=== PATIENT | male | born 2005 | race Caucasian/White ===

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

== ENCOUNTER 2024-04-14 08:46 | Inpatient (IN) | payer MEDICAID ==
[2024-04-14] MEDS ORDERED: Naloxone 0.4 MG/ML SDV IVPUSH PRN (09:17)
[2024-04-14] MEDS: Ondansetron 4 MG/2 ML SDV IVPUSH ONE (09:28)
[2024-04-14] MEDS: Sodium Chloride 0.9% 500 ML IV ONE (09:28)
[2024-04-14] MEDS: HYDROmorphone 0.5 MG/0.5 ML Syringe IVPUSH PRN (09:28)
[2024-04-14 09:31] LABS: BASOPHILS ABSOLUTE AUTO 0.03 K/uL (0.00-0.10); BASOPHILS PERCENT AUTO 0.2 % (0.1-1.3); EOSINOPHILS ABSOLUTE AUTO 0.05 K/uL (0.00-0.40); EOSINOPHILS PERCENT AUTO 0.4 % (0.0-5.4); HEMATOCRIT 49.9 % (38.4-49.7); HEMOGLOBIN 17.8 g/dL (12.9-16.9); IMMATURE GRAN ABSOLUTE AUTO 0.04 K/uL (0.00-0.23); IMMATURE GRAN PERCENT AUTO 0.3 % (0.0-0.7); LYMPHOCYTES ABSOLUTE AUTO 1.05 K/uL (0.8-3.3); LYMPHOCYTES PERCENT AUTO 7.6 % (11.4-47.7); MEAN CORPUSCULAR HEMOGLOBIN 30.6 pg (31.6-35.5); MEAN CORPUSCULAR HGB CONC 35.7 g/dL (31.6-35.5); MEAN CORPUSCULAR VOLUME 85.9 fL (81.4-99.0); MONOCYTES ABSOLUTE AUTO 0.57 K/uL (0.20-0.90); MONOCYTES PERCENT AUTO 4.1 % (3.3-12.6); NEUTROPHILS ABSOLUTE AUTO 12.15 K/uL (1.0-7.6); NEUTROPHILS PERCENT AUTO 87.4 % (40.0-78.1); PLATELET COUNT,PLT 349 K/uL (130-375); RED BLOOD CELL COUNT 5.81 M/uL (4.14-5.76); WHITE BLOOD CELL COUNT,WBC 13.9 K/uL (3.2-11.0)
[2024-04-14] MEDS: Sodium Chloride 0.9% 80 ML IV ONE (09:36)
[2024-04-14] MEDS: Sodium Chloride 0.9% 10 ML Syringe FLUSH PRN (09:36)
[2024-04-14] MEDS: Iopamidol 612 MG/ML 100 ML Bottle IV PRN (09:36)
[2024-04-14 09:56] LABS: A/G RATIO 1.3 (1.2-2.2); ALANINE AMINOTRANSFERASE,ALT 37 U/L (12-78); ALBUMIN 4.9 g/dL (3.4-5.0); ALKALINE PHOSPHATASE 75 U/L (46-116); ASPARTATE AMNIOTRANSFERASE,AST 29 U/L (15-37); BILIRUBIN TOTAL 0.8 mg/dL (0.2-1.0); BLOOD UREA NITROGEN,BUN 14 mg/dL (7-18); CALCIUM 10.3 mg/dL (8.5-10.1); CARBON DIOXIDE,CO2 26 mmol/L (21-32); CHLORIDE,CL 101 mmol/L (100-108); EST CRCL DRUG DOSING (CG) 129.33 mL/min; ESTIMATED GFR 111 mL/min (>60); GLUCOSE RANDOM 113 mg/dL (74-106); POTASSIUM,K 4.3 mmol/L (3.6-5.2); PROTEIN TOTAL,TP 8.7 g/dL (6.4-8.2); SODIUM,NA 139 mmol/L (140-148)
[2024-04-14 10:10] LABS: ANION GAP 16.3 mmol/L (5.0-14.0)
[2024-04-14 10:28] LABS: CORONAVIRUS COVID-19 NAA NEGATIVE (NEGATIVE); INFLUENZA A NAA NEGATIVE (NEGATIVE); INFLUENZA B NAA NEGATIVE (NEGATIVE); RESPIRATORY SYNCYTIAL VIR NAA NEGATIVE (NEGATIVE)
[2024-04-14] MEDS ORDERED: Ondansetron 4 MG/2 ML SDV IV PRN (10:59)
[2024-04-14] MEDS ORDERED: Acetaminophen 325 MG Tab PO PRN (10:59)
[2024-04-14] MEDS: Lactated Ringers 1,000 ML IV SCH (12:26)
[2024-04-14] MEDS: Benzocaine/Cetylpyridinium/Menthol Lozenge MUCMEM PRN (19:26)
[2024-04-15 05:16] LABS: BASOPHILS ABSOLUTE AUTO 0.04 K/uL (0.00-0.10); BASOPHILS PERCENT AUTO 0.4 % (0.1-1.3); EOSINOPHILS ABSOLUTE AUTO 0.34 K/uL (0.00-0.40); EOSINOPHILS PERCENT AUTO 3.2 % (0.0-5.4); HEMATOCRIT 42.8 % (38.4-49.7); IMMATURE GRAN ABSOLUTE AUTO 0.03 K/uL (0.00-0.23); IMMATURE GRAN PERCENT AUTO 0.3 % (0.0-0.7); LYMPHOCYTES ABSOLUTE AUTO 2.51 K/uL (0.8-3.3); MEAN CORPUSCULAR HEMOGLOBIN 30.5 pg (31.6-35.5); MEAN CORPUSCULAR VOLUME 87.2 fL (81.4-99.0); MONOCYTES ABSOLUTE AUTO 0.99 K/uL (0.20-0.90); MONOCYTES PERCENT AUTO 9.5 % (3.3-12.6); NEUTROPHILS ABSOLUTE AUTO 6.56 K/uL (1.0-7.6); NEUTROPHILS PERCENT AUTO 62.6 % (40.0-78.1); PLATELET COUNT,PLT 316 K/uL (130-375); RED BLOOD CELL COUNT 4.91 M/uL (4.14-5.76); WHITE BLOOD CELL COUNT,WBC 10.5 K/uL (3.2-11.0)
[2024-04-15 05:37] LABS: ANION GAP 7.3 mmol/L (5.0-14.0); EST CRCL DRUG DOSING (CG) 129.33 mL/min; POTASSIUM,K 3.7 mmol/L (3.6-5.2)
[2024-04-15] MEDS: Diatrizoate Meglumine/Diatrizoate Sodium 37% 30 ML Bottle NGTUBE ONE (05:58)
== END 2024-04-15 15:47 | disposition home or self-care (01) | DRG 390 ==
LOC: JP.ED 08:46 → JP.MS 10:59
PROVIDERS: ADMIT Surgery; ATTEND Surgery
PROC: 0D9670Z Drainage of Stomach with Drainage Device, Via Natural or Artificial Opening (ICD-10-PCS; principal; 2024-04-14)
DX: K56.609 Unspecified intestinal obstruction, unspecified as to partial versus complete obstruction (principal); Z86.16 Personal history of COVID-19; F17.210 Nicotine dependence, cigarettes, uncomplicated
CPT/HCPCS: 0241U; 36415; 71045; 74018; 74177; 80048; 80053; 83605; 83690; 84145; 85025; 96361; 96374; 96375; 99284-25; 99285; A9270-GY; J1171; J2405; J3490; J7030; J7120; Q9963; Q9967